=== PATIENT | female | born 1945 | race African-American/Black ===

== ENCOUNTER 2018-06-21 00:46 | Emergency (ER) | payer MEDICARE ==
[~2018-06-21] VITALS: Ht 160 cm; Wt 59.0 kg
[~2018-06-21 00:46] MED LIST: ASPI-1159 PO; AURYXIA PO; CALC0.253 PO; CALC667C PO; DIPH1TAB PO; EPOE10005 IJ; FURO40TA5 PO; HYDR-4135 PO; PANT40TA4 PO
[2018-06-21] MEDS ORDERED: FAMOTIDINE 20MG/2ML VIAL IV ONE (01:15)
[2018-06-21] MEDS ORDERED: KETOROLAC 30MG/ML VIAL IV ONE (01:15)
[2018-06-21] MEDS ORDERED: LIDOCAINE 5% PATCH TOP SCH (02:45)
[2018-06-21] MEDS ORDERED: MORPHINE SULFATE 4 MG/ML CPJ (NOT FOR IM USE) IV ONE (02:45)
[2018-06-21 05:43] VITALS: BP 118/42
== END 2018-06-21 04:26 | disposition home or self-care (01) ==
LOC: ER 00:46
DX: G89.29 Other chronic pain (principal); M54.5 Low back pain; R11.0 Nausea; D64.9 Anemia, unspecified; Z98.890 Other specified postprocedural states; Z79.899 Other long term (current) drug therapy; Z79.82 Long term (current) use of aspirin
CPT/HCPCS: 96374; 96375; 99284; J1885; J2270; J3490

== ENCOUNTER 2018-12-02 00:12 | Inpatient (IN) | payer MEDICARE ==
[~2018-12-02] VITALS: Ht 154.9 cm; Wt 62.9 kg
[2018-12-02] MEDS ORDERED: FAMOTIDINE 20MG/2ML VIAL IV STA (00:35)
[2018-12-02 01:59] LABS: BASOPHILS % 0.3 % (0.0-2.0); EOSINOPHILS % 0.6 % (0.0-5.0); HEMATOCRIT. 25.1 % (36.0-48.0); HEMOGLOBIN. 8.3 g/dL (12.0-16.0); MEAN CORPUSCULAR HEMOGLOBIN 35.8 pg (28.0-32.0); MEAN CORPUSCULAR VOLUME 108.7 fL (81.0-99.0); MEAN PLATELET VOLUME 8.6 fl (7.4-10.4); MONOCYTES % 11.5 % (2.0-8.0); NEUTROPHILS % 75.6 % (40.0-76.0); PLATELET 169 x1000/uL (130-400); RED BLOOD CELL COUNT 2.31 mill/uL (4.2-5.4); RED CELL DISTRIBUTION WIDTH 15.7 % (11.6-14.6)
[2018-12-02 02:03] LABS: CHLORIDE 97 mEq/L (98-107)
[2018-12-02] MEDS ORDERED: ONDANSETRON HCL 4MG/2ML INJ IV ONE (02:30)
[2018-12-02] MEDS ORDERED: ACETAMINOPHEN 325MG TABLET PO ONE (07:00)
[2018-12-02 08:25] VITALS: BP 156/48
[2018-12-02 09:20] VITALS: BP 156/48
[2018-12-02 12:00] VITALS: BP 141/47
[2018-12-02] MEDS ORDERED: GUAIFENESIN 200MG/10ML SUGAR FREE UDC PO PRN (12:30)
[2018-12-02] MEDS ORDERED: DIPHENHYDRAMINE 50MG/ML VIAL IV PRN (12:30)
[2018-12-02] MEDS ORDERED: DOCUSATE SODIUM 100MG CAPSULE PO PRN (12:30)
[2018-12-02] MEDS ORDERED: ACETAMINOPHEN 650MG SUPP PR PRN (12:30)
[2018-12-02] MEDS ORDERED: CLONIDINE 0.1MG TABLET PO PRN (12:30)
[2018-12-02] MEDS ORDERED: IPRATROPIUM/ALBUTEROL 0.5-3(2.5)MG/3ML NEB INH PRN (12:30)
[2018-12-02] MEDS: ONDANSETRON HCL 4MG/2ML INJ IV PRN (12:45)
[2018-12-02 15:55] LABS: INR 1.1; PROTHROMBIN TIME 10.7 sec (9.1-11.1)
[2018-12-02 16:00] VITALS: BP 80/52
[2018-12-02] MEDS: DEXT 5%/0.45% NACL 1000ML 1,000 ML IV SCH (16:08)
[2018-12-02 16:09] LABS: CREATINE KINASE MB FRACTION 1.9 ng/mL (0.5-3.6)
[2018-12-02] MEDS: ACETAMINOPHEN 325MG TABLET PO PRN (17:48)
[2018-12-02 19:58] LABS: HEMATOCRIT 23.2 % (36.0-48.0); HEMOGLOBIN 7.6 g/dL (12.0-16.0)
[2018-12-02 20:00] VITALS: BP 105/48
[2018-12-02] MEDS: PANTOPRAZOLE SODIUM 40 MG/VIAL IV SCH (21:22)
[2018-12-02] MEDS: LORAZEPAM 0.5MG TABLET PO PRN (21:23)
[2018-12-02] MEDS: IPRATROPIUM/ALBUTEROL 0.5-3(2.5)MG/3ML NEB INH SCH (21:45)
[2018-12-03] VITALS (9 sets, daily range): BP systolic 91–130; BP diastolic 30–65
[2018-12-03] MEDS: HYDROCODONE/ACETAMINOPHEN 5/325MG TABLET PO PRN ×4 (01:40→20:11)
[2018-12-03 02:13] LABS: CREATINE KINASE MB FRACTION 2.4 ng/mL (0.5-3.6)
[2018-12-03] MEDS: IPRATROPIUM/ALBUTEROL 0.5-3(2.5)MG/3ML NEB INH SCH ×2 (02:20→20:29)
[2018-12-03 07:11] LABS: BASOPHILS % 0.4 % (0.0-2.0); EOSINOPHILS % 0.9 % (0.0-5.0); HEMATOCRIT. 23.1 % (36.0-48.0); HEMOGLOBIN. 7.6 g/dL (12.0-16.0); LYMPHOCYTES % 22.3 % (20.0-50.0); MEAN CORPUSCULAR HEMOGLOBIN 35.9 pg (28.0-32.0); MEAN CORPUSCULAR VOLUME 108.6 fL (81.0-99.0); MEAN PLATELET VOLUME 8.6 fl (7.4-10.4); MONOCYTES % 14.8 % (2.0-8.0); NEUTROPHILS % 61.6 % (40.0-76.0); PLATELET 158 x1000/uL (130-400); RED BLOOD CELL COUNT 2.13 mill/uL (4.2-5.4); RED CELL DISTRIBUTION WIDTH 15.5 % (11.6-14.6)
[2018-12-03 07:14] LABS: CHLORIDE 96 mEq/L (98-107)
[2018-12-03 07:26] LABS: HDL CHOLESTEROL 70 mg/dL (40-59); T4 FREE 1.13 ng/dL (0.76-1.46)
[2018-12-03 07:31] LABS: LDL CHOLESTEROL 21 mg/dL (5-100)
[2018-12-03] MEDS: PANTOPRAZOLE SODIUM 40 MG/VIAL IV SCH ×2 (08:11→20:09)
[2018-12-03] MEDS: ONDANSETRON HCL 4MG/2ML INJ IV PRN (10:51)
[2018-12-03] MEDS ORDERED: HEPARIN SODIUM 1,000 UNIT/1ML VIAL IV NR (13:00)
[2018-12-03 14:38] LABS: BG BASE EXCESS -0.3 mmol/L (-2.0-2.0); BG CARBOXYHEMOGLOBIN 0.8 % (0.5-1.5); BG DEOXYHEMOGLOBIN 8.8 % (0.0-5.0); BG FRACTION INSPIRED OXYGEN 28; BG OXYGEN SATURATION 91.1 % (92.0-98.5); BG OXYHEMOGLOBIN 90.4 % (94.0-97.0); BG PCO2 37.5 mmHg (35.0-45.0); BG PH 7.424 (7.350-7.450); BG PO2 81.5 mmHg (75.0-100.0); BG SAMPLE SITE LEFT BRACHIAL; BG TOTAL HEMOGLOBIN 8.1 g/dL (12.0-18.0); BG VENT MODE NASAL CANNULA
[2018-12-03] MEDS: HEMORRHOIDAL SUPP PR SCH (20:13)
[2018-12-03] MEDS: DILTIAZEM HCL 30MG TABLET PO SCH ×2 (21:51→22:00)
[2018-12-03] MEDS: EPOETIN ALFA 10000UNITS/ML VIAL SUBCUT SCH (22:07)
[2018-12-04] VITALS (7 sets, daily range): BP systolic 94–133; BP diastolic 34–82
[2018-12-04] MEDS: IPRATROPIUM/ALBUTEROL 0.5-3(2.5)MG/3ML NEB INH SCH ×4 (01:13→22:14)
[2018-12-04] MEDS: HYDROCODONE/ACETAMINOPHEN 5/325MG TABLET PO PRN ×3 (02:56→17:31)
[2018-12-04] MEDS: DEXT 5%/0.45% NACL 1000ML 1,000 ML IV SCH (03:15)
[2018-12-04] MEDS: DILTIAZEM HCL 30MG TABLET PO SCH ×3 (05:27→21:24)
[2018-12-04 07:19] LABS: BASOPHILS % 0.4 % (0.0-2.0); EOSINOPHILS % 2.2 % (0.0-5.0); HEMATOCRIT. 28.5 % (36.0-48.0); HEMOGLOBIN. 9.6 g/dL (12.0-16.0); LYMPHOCYTES % 15.5 % (20.0-50.0); MEAN CORPUSCULAR HEMOGLOBIN 34.5 pg (28.0-32.0); MEAN CORPUSCULAR VOLUME 102.5 fL (81.0-99.0); MEAN PLATELET VOLUME 8.6 fl (7.4-10.4); NEUTROPHILS % 69.9 % (40.0-76.0); PLATELET 153 x1000/uL (130-400); RED BLOOD CELL COUNT 2.78 mill/uL (4.2-5.4); RED CELL DISTRIBUTION WIDTH 21.1 % (11.6-14.6)
[2018-12-04] MEDS: HEMORRHOIDAL SUPP PR SCH ×2 (09:00→21:00)
[2018-12-04] MEDS: PANTOPRAZOLE SODIUM 40 MG/VIAL IV SCH ×2 (10:04→21:30)
[2018-12-04] MEDS: DOCUSATE SODIUM SUGAR FREE 100MG/10ML UDC NG SCH (10:04)
[2018-12-04] MEDS: MAGNESIUM/ALUMINUM HYDROXIDE/SIMETHICONE 30ML UDC PO PRN (21:52)
[2018-12-05] VITALS: BP 106/46
[2018-12-05] MEDS: DEXT 5%/0.45% NACL 1000ML 1,000 ML IV SCH (00:14)
[2018-12-05] MEDS: IPRATROPIUM/ALBUTEROL 0.5-3(2.5)MG/3ML NEB INH SCH ×4 (01:59→21:50)
[2018-12-05 04:00] VITALS: BP 110/30
[2018-12-05] MEDS: DILTIAZEM HCL 30MG TABLET PO SCH ×3 (05:44→21:39)
[2018-12-05 08:00] VITALS: BP 121/68
[2018-12-05 08:02] LABS: BASOPHILS % 0.2 % (0.0-2.0); EOSINOPHILS % 0.7 % (0.0-5.0); HEMATOCRIT. 27.9 % (36.0-48.0); HEMOGLOBIN. 9.3 g/dL (12.0-16.0); LYMPHOCYTES % 10.9 % (20.0-50.0); MEAN CORPUSCULAR HEMOGLOBIN 34.6 pg (28.0-32.0); MEAN CORPUSCULAR VOLUME 103.6 fL (81.0-99.0); MEAN PLATELET VOLUME 8.2 fl (7.4-10.4); MONOCYTES % 12.7 % (2.0-8.0); NEUTROPHILS % 75.5 % (40.0-76.0); PLATELET 145 x1000/uL (130-400); RED CELL DISTRIBUTION WIDTH 21.2 % (11.6-14.6)
[2018-12-05] MEDS: HEMORRHOIDAL SUPP PR SCH ×2 (09:00→20:41)
[2018-12-05] MEDS: DOCUSATE SODIUM SUGAR FREE 100MG/10ML UDC NG SCH (09:00)
[2018-12-05] MEDS: PANTOPRAZOLE SODIUM 40 MG/VIAL IV SCH ×2 (09:39→20:40)
[2018-12-05 12:00] VITALS: BP 124/79
[2018-12-05] MEDS: HYDROCODONE/ACETAMINOPHEN 5/325MG TABLET PO PRN (15:45)
[2018-12-05 16:00] VITALS: BP 123/69
[2018-12-05 20:00] VITALS: BP 116/33
[2018-12-05] MEDS: MAGNESIUM/ALUMINUM HYDROXIDE/SIMETHICONE 30ML UDC PO PRN (23:20)
[2018-12-06] VITALS (67 sets, daily range): BP systolic 61–165; BP diastolic 16–84
[2018-12-06] MEDS: LORAZEPAM 0.5MG TABLET PO PRN (01:33)
[2018-12-06] MEDS: DEXT 5%/0.45% NACL 1000ML 1,000 ML IV SCH (01:35)
[2018-12-06] MEDS: IPRATROPIUM/ALBUTEROL 0.5-3(2.5)MG/3ML NEB INH SCH ×5 (02:18→22:15)
[2018-12-06] MEDS: DILTIAZEM HCL 30MG TABLET PO SCH ×3 (06:00→21:03)
[2018-12-06 06:24] LABS: BASOPHILS % 0.4 % (0.0-2.0); EOSINOPHILS % 1.1 % (0.0-5.0); HEMOGLOBIN. 9.6 g/dL (12.0-16.0); MEAN CORPUSCULAR HEMOGLOBIN 34.5 pg (28.0-32.0); MEAN PLATELET VOLUME 8.1 fl (7.4-10.4); MONOCYTES % 11.5 % (2.0-8.0); PLATELET 152 x1000/uL (130-400); RED BLOOD CELL COUNT 2.79 mill/uL (4.2-5.4); RED CELL DISTRIBUTION WIDTH 20.6 % (11.6-14.6)
[2018-12-06 06:34] LABS: CHLORIDE 105 mEq/L (98-107)
[2018-12-06] MEDS ORDERED: NOREPINEPHRINE 4 MG in DEXT 5% WATER 246 ML IV ONE (06:45)
[2018-12-06] MEDS ORDERED: EPINEPHRINE 4 MG in DEXT 5% WATER 246 ML IV ONE (06:45)
[2018-12-06] MEDS ORDERED: BUPIVACAINE/EPINEPH/PF 0.25%/0.0005 10ML ONE (06:58)
[2018-12-06] MEDS ORDERED: BACITRACIN 15GM TUBE TOP ONE (06:58)
[2018-12-06] MEDS ORDERED: BACITRACIN 50,000 UNITS/VIAL ONE (06:58)
[2018-12-06] MEDS ORDERED: NORMAL SALINE 0.9% 10 ML SYR ONE (06:58)
[2018-12-06] MEDS ORDERED: SODIUM CHLORIDE 0.9% 1,000 ML ONE (06:59)
[2018-12-06] MEDS ORDERED: SKIN ADHESIVE 0.7 GM EA TOP ONE (07:30)
[2018-12-06] MEDS ORDERED: PHENYLEPHRINE HCL 10 MG/ML 1ML (IV VIAL) IV ONE ×2 (07:42→09:48)
[2018-12-06] MEDS ORDERED: ETOMIDATE 2MG/ML 10ML VIAL IV ONE (07:42)
[2018-12-06] MEDS ORDERED: FENTANYL CITRATE/PF 50MCG/ML 2ML VIAL ONE (07:42)
[2018-12-06] MEDS: DOCUSATE SODIUM SUGAR FREE 100MG/10ML UDC NG SCH (09:00)
[2018-12-06] MEDS: HEMORRHOIDAL SUPP PR SCH ×3 (09:00→21:02)
[2018-12-06] MEDS: PANTOPRAZOLE SODIUM 40 MG/VIAL IV SCH ×2 (09:00→21:02)
[2018-12-06] MEDS ORDERED: HYDROMORPHONE HCL/PF 2MG/ML (OR) ONE (09:40)
[2018-12-06 10:56] LABS: BG BASE EXCESS -3.9 mmol/L (-2.0-2.0); BG CARBOXYHEMOGLOBIN 0.3 % (0.5-1.5); BG DEOXYHEMOGLOBIN 3.6 % (0.0-5.0); BG FRACTION INSPIRED OXYGEN 60; BG HCO3 ACT 21.7 mmol/L (22.0-26.0); BG METHEMOGLOBIN 0.2 % (0.0-1.5); BG OXYGEN SATURATION 96.4 % (92.0-98.5); BG OXYHEMOGLOBIN 95.9 % (94.0-97.0); BG PCO2 41.7 mmHg (35.0-45.0); BG PH 7.334 (7.350-7.450); BG SAMPLE SITE A-LINE; BG TOTAL HEMOGLOBIN 9.1 g/dL (12.0-18.0); BG VENT MODE MASK - SIMPLE
[2018-12-06] MEDS ORDERED: MORPHINE SULFATE 4 MG/ML CPJ (NOT FOR IM USE) IV PRN (11:30)
[2018-12-06] MEDS ORDERED: METOPROLOL TARTRATE 5MG/5ML VIAL IV SCH (12:15)
[2018-12-06] MEDS ORDERED: LORAZEPAM 0.5MG TABLET PO PRN (16:30)
[2018-12-06] MEDS ORDERED: ALBUMIN HUMAN 12.5G/250ML (5%) IV NR (20:00)
[2018-12-06] MEDS: EPOETIN ALFA 10000UNITS/ML VIAL SUBCUT SCH (21:02)
[2018-12-06] MEDS: ACETAMINOPHEN 325MG TABLET PO PRN (21:46)
[2018-12-07] VITALS (70 sets, daily range): BP systolic 62–164; BP diastolic 23–139
[2018-12-07] MEDS: DEXT 5%/0.45% NACL 1000ML 1,000 ML IV SCH (01:22)
[2018-12-07] MEDS: HYDROCODONE/ACETAMINOPHEN 5/325MG TABLET PO PRN ×2 (04:05→09:38)
[2018-12-07] MEDS: IPRATROPIUM/ALBUTEROL 0.5-3(2.5)MG/3ML NEB INH SCH ×4 (04:51→21:51)
[2018-12-07] MEDS: DILTIAZEM HCL 30MG TABLET PO SCH ×3 (05:15→22:00)
[2018-12-07 06:17] LABS: BASOPHILS % 0.3 % (0.0-2.0); EOSINOPHILS % 1.2 % (0.0-5.0); HEMATOCRIT. 27.7 % (36.0-48.0); HEMOGLOBIN. 9.1 g/dL (12.0-16.0); LYMPHOCYTES % 14.5 % (20.0-50.0); MEAN CORPUSCULAR HEMOGLOBIN 34.4 pg (28.0-32.0); MEAN CORPUSCULAR VOLUME 104.2 fL (81.0-99.0); MEAN PLATELET VOLUME 8.6 fl (7.4-10.4); MONOCYTES % 13.2 % (2.0-8.0); NEUTROPHILS % 70.8 % (40.0-76.0); PLATELET 126 x1000/uL (130-400); RED BLOOD CELL COUNT 2.66 mill/uL (4.2-5.4); RED CELL DISTRIBUTION WIDTH 19.7 % (11.6-14.6)
[2018-12-07] MEDS: DOCUSATE SODIUM SUGAR FREE 100MG/10ML UDC NG SCH ×2 (09:00→09:30)
[2018-12-07] MEDS ORDERED: SODIUM CHLORIDE 0.9% 200 ML IV ONE (09:00)
[2018-12-07] MEDS: HEMORRHOIDAL SUPP PR SCH ×2 (09:00→21:00)
[2018-12-07 09:02] LABS: BG CARBOXYHEMOGLOBIN 0.6 % (0.5-1.5); BG DEOXYHEMOGLOBIN 7.4 % (0.0-5.0); BG FRACTION INSPIRED OXYGEN 28; BG METHEMOGLOBIN 0.1 % (0.0-1.5); BG OXYGEN SATURATION 92.5 % (92.0-98.5); BG OXYHEMOGLOBIN 91.9 % (94.0-97.0); BG PCO2 43.6 mmHg (35.0-45.0); BG PH 7.394 (7.350-7.450); BG PO2 83.3 mmHg (75.0-100.0); BG SAMPLE SITE LEFT BRACHIAL; BG TOTAL HEMOGLOBIN 8.1 g/dL (12.0-18.0); BG VENT MODE NASAL CANNULA
[2018-12-07] MEDS: PANTOPRAZOLE SODIUM 40 MG/VIAL IV SCH ×2 (09:30→22:16)
[2018-12-07] MEDS ORDERED: AMIODARONE HCL 900 MG in DEXT 5% WATER 482 ML IV SCH (10:45)
[2018-12-07] MEDS ORDERED: PHENYLEPHRINE 20 MG in DEXT 5% WATER 248 ML IV PRN (16:00)
[2018-12-08] VITALS (93 sets, daily range): BP systolic 44–140; BP diastolic 15–101
[2018-12-08] MEDS: DEXT 5%/0.45% NACL 1000ML 1,000 ML IV SCH (01:31)
[2018-12-08] MEDS: IPRATROPIUM/ALBUTEROL 0.5-3(2.5)MG/3ML NEB INH SCH ×3 (01:39→20:32)
[2018-12-08] MEDS: ONDANSETRON HCL 4MG/2ML INJ IV PRN ×2 (02:47→10:19)
[2018-12-08] MEDS: DILTIAZEM HCL 30MG TABLET PO SCH (06:00)
[2018-12-08 06:14] LABS: BASOPHILS % 0.4 % (0.0-2.0); EOSINOPHILS % 1.2 % (0.0-5.0); LYMPHOCYTES % 10.3 % (20.0-50.0); MEAN CORPUSCULAR HEMOGLOBIN 33.8 pg (28.0-32.0); MEAN CORPUSCULAR VOLUME 105.2 fL (81.0-99.0); MEAN PLATELET VOLUME 8.4 fl (7.4-10.4); MONOCYTES % 13.2 % (2.0-8.0); NEUTROPHILS % 74.9 % (40.0-76.0); PLATELET 144 x1000/uL (130-400); RED BLOOD CELL COUNT 2.66 mill/uL (4.2-5.4); RED CELL DISTRIBUTION WIDTH 19.3 % (11.6-14.6)
[2018-12-08] MEDS: ACETAMINOPHEN 325MG TABLET PO PRN ×2 (07:10→19:54)
[2018-12-08] MEDS: DOCUSATE SODIUM SUGAR FREE 100MG/10ML UDC NG SCH (08:44)
[2018-12-08] MEDS: HEMORRHOIDAL SUPP PR SCH ×2 (08:45→19:54)
[2018-12-08] MEDS: PANTOPRAZOLE SODIUM 40 MG/VIAL IV SCH ×2 (10:18→19:54)
[2018-12-08] MEDS: AMIODARONE HCL 200 MG TABLET PO SCH ×2 (12:10→21:57)
[2018-12-08] MEDS: HYDROCODONE/ACETAMINOPHEN 5/325MG TABLET PO PRN (12:11)
[2018-12-08] MEDS: EPOETIN ALFA 10000UNITS/ML VIAL SUBCUT SCH (21:57)
[2018-12-09] VITALS (53 sets, daily range): BP systolic 60–157; BP diastolic 21–114
[2018-12-09] MEDS: IPRATROPIUM/ALBUTEROL 0.5-3(2.5)MG/3ML NEB INH SCH ×4 (00:19→21:10)
[2018-12-09] MEDS: DEXT 5%/0.45% NACL 1000ML 1,000 ML IV SCH (01:54)
[2018-12-09] MEDS: ACETAMINOPHEN 325MG TABLET PO PRN ×2 (05:15→12:28)
[2018-12-09 08:05] LABS: HEMATOCRIT 25.3 % (36.0-48.0); HEMOGLOBIN 8.2 g/dL (12.0-16.0); MEAN CORPUSCULAR HEMOGLOBIN 33.6 pg (28.0-32.0); MEAN CORPUSCULAR VOLUME 103.3 fL (81.0-99.0); PLATELET 126 x1000/uL (130-400); RED BLOOD CELL COUNT 2.45 mill/uL (4.2-5.4); RED CELL DISTRIBUTION WIDTH 18.5 % (11.6-14.6)
[2018-12-09] MEDS: PANTOPRAZOLE SODIUM 40 MG/VIAL IV SCH ×2 (08:49→20:46)
[2018-12-09] MEDS: AMIODARONE HCL 200 MG TABLET PO SCH ×3 (08:49→21:56)
[2018-12-09] MEDS: DOCUSATE SODIUM SUGAR FREE 100MG/10ML UDC NG SCH (08:50)
[2018-12-09] MEDS: HEMORRHOIDAL SUPP PR SCH ×2 (09:00→20:46)
[2018-12-09] MEDS: MIDODRINE HCL 5MG TABLET PO SCH ×2 (13:18→18:18)
[2018-12-10] VITALS (31 sets, daily range): BP systolic 114–163; BP diastolic 40–105
[2018-12-10] MEDS: IPRATROPIUM/ALBUTEROL 0.5-3(2.5)MG/3ML NEB INH SCH ×4 (00:40→20:21)
[2018-12-10] MEDS: DEXT 5%/0.45% NACL 1000ML 1,000 ML IV SCH (03:52)
[2018-12-10] MEDS: HYDROCODONE/ACETAMINOPHEN 5/325MG TABLET PO PRN ×3 (03:52→23:05)
[2018-12-10 07:35] LABS: HEMATOCRIT. 26.3 % (36.0-48.0); HEMOGLOBIN. 8.7 g/dL (12.0-16.0); MEAN CORPUSCULAR HEMOGLOBIN 33.9 pg (28.0-32.0); MEAN CORPUSCULAR VOLUME 102.6 fL (81.0-99.0); MEAN PLATELET VOLUME 8.3 fl (7.4-10.4); PLATELET 144 x1000/uL (130-400); RED BLOOD CELL COUNT 2.56 mill/uL (4.2-5.4); RED CELL DISTRIBUTION WIDTH 17.9 % (11.6-14.6)
[2018-12-10 07:49] LABS: CHLORIDE 100 mEq/L (98-107)
[2018-12-10] MEDS: PANTOPRAZOLE SODIUM 40 MG/VIAL IV SCH ×2 (08:59→21:56)
[2018-12-10] MEDS: MIDODRINE HCL 5MG TABLET PO SCH ×3 (08:59→17:45)
[2018-12-10] MEDS: AMIODARONE HCL 200 MG TABLET PO SCH (08:59)
[2018-12-10] MEDS: DOCUSATE SODIUM SUGAR FREE 100MG/10ML UDC NG SCH (09:00)
[2018-12-10] MEDS: HEMORRHOIDAL SUPP PR SCH ×2 (09:00→22:10)
[2018-12-10 10:07] LABS: PLATELET ESTIMATE NORMAL
[2018-12-10] MEDS ORDERED: HEPARIN SODIUM 1,000 UNIT/1ML VIAL IV NR (11:30)
[2018-12-10] MEDS: EPOETIN ALFA 10000UNITS/ML VIAL SUBCUT SCH (22:10)
[2018-12-11] VITALS (12 sets, daily range): BP systolic 104–156; BP diastolic 42–74
[2018-12-11] MEDS: MAGNESIUM/ALUMINUM HYDROXIDE/SIMETHICONE 30ML UDC PO PRN (00:28)
[2018-12-11] MEDS: IPRATROPIUM/ALBUTEROL 0.5-3(2.5)MG/3ML NEB INH SCH ×3 (02:41→20:54)
[2018-12-11] MEDS: ONDANSETRON HCL 4MG/2ML INJ IV PRN (06:20)
[2018-12-11] MEDS: HYDROCODONE/ACETAMINOPHEN 5/325MG TABLET PO PRN (06:49)
[2018-12-11] MEDS: HEMORRHOIDAL SUPP PR SCH ×2 (09:00→20:53)
[2018-12-11] MEDS: DOCUSATE SODIUM SUGAR FREE 100MG/10ML UDC NG SCH (09:00)
[2018-12-11] MEDS: MIDODRINE HCL 5MG TABLET PO SCH ×3 (09:00→17:00)
[2018-12-11] MEDS: PANTOPRAZOLE SODIUM 40 MG/VIAL IV SCH ×2 (09:01→20:42)
[2018-12-11] MEDS: AMIODARONE HCL 200 MG TABLET PO SCH ×2 (09:02→20:43)
[2018-12-11] MEDS: ACETAMINOPHEN 325MG TABLET PO PRN (18:47)
[2018-12-12] VITALS (12 sets, daily range): BP systolic 109–160; BP diastolic 34–63
[2018-12-12] MEDS: IPRATROPIUM/ALBUTEROL 0.5-3(2.5)MG/3ML NEB INH SCH ×3 (01:59→22:09)
[2018-12-12 05:43] LABS: HEMATOCRIT. 26.9 % (36.0-48.0); HEMOGLOBIN. 8.8 g/dL (12.0-16.0); MEAN CORPUSCULAR HEMOGLOBIN 33.8 pg (28.0-32.0); MEAN CORPUSCULAR VOLUME 103.2 fL (81.0-99.0); MEAN PLATELET VOLUME 7.9 fl (7.4-10.4); PLATELET 153 x1000/uL (130-400); RED CELL DISTRIBUTION WIDTH 17.8 % (11.6-14.6)
[2018-12-12 05:53] LABS: CHLORIDE 106 mEq/L (98-107)
[2018-12-12] MEDS: DOCUSATE SODIUM SUGAR FREE 100MG/10ML UDC NG SCH ×2 (08:00→08:08)
[2018-12-12] MEDS: PANTOPRAZOLE SODIUM 40 MG/VIAL IV SCH ×2 (08:02→21:20)
[2018-12-12] MEDS: HYDROCODONE/ACETAMINOPHEN 5/325MG TABLET PO PRN ×3 (08:03→19:40)
[2018-12-12] MEDS: HEMORRHOIDAL SUPP PR SCH ×2 (08:03→21:00)
[2018-12-12] MEDS: AMIODARONE HCL 200 MG TABLET PO SCH (08:04)
[2018-12-12] MEDS: MIDODRINE HCL 5MG TABLET PO SCH ×2 (08:04→12:37)
[2018-12-12 14:26] LABS: PLATELET ESTIMATE NORMAL
[2018-12-12] MEDS ORDERED: ATROPINE SULFATE 1MG/ML VIAL IV PRN (16:15)
[2018-12-13] VITALS (12 sets, daily range): BP systolic 107–156; BP diastolic 30–84
[2018-12-13] MEDS: IPRATROPIUM/ALBUTEROL 0.5-3(2.5)MG/3ML NEB INH SCH ×3 (03:50→21:21)
[2018-12-13 07:42] LABS: BASOPHILS % 0.3 % (0.0-2.0); EOSINOPHILS % 0.9 % (0.0-5.0); HEMATOCRIT. 25.8 % (36.0-48.0); HEMOGLOBIN. 8.5 g/dL (12.0-16.0); LYMPHOCYTES % 12.9 % (20.0-50.0); MEAN CORPUSCULAR HEMOGLOBIN 33.9 pg (28.0-32.0); MEAN CORPUSCULAR VOLUME 103.1 fL (81.0-99.0); MEAN PLATELET VOLUME 8.5 fl (7.4-10.4); MONOCYTES % 14.6 % (2.0-8.0); NEUTROPHILS % 71.3 % (40.0-76.0); PLATELET 161 x1000/uL (130-400); RED CELL DISTRIBUTION WIDTH 18.3 % (11.6-14.6)
[2018-12-13] MEDS: DOCUSATE SODIUM SUGAR FREE 100MG/10ML UDC NG SCH (09:00)
[2018-12-13] MEDS: HEMORRHOIDAL SUPP PR SCH ×2 (09:00→21:00)
[2018-12-13] MEDS: PANTOPRAZOLE SODIUM 40 MG/VIAL IV SCH ×2 (10:16→21:44)
[2018-12-13] MEDS: ONDANSETRON HCL 4MG/2ML INJ IV PRN (10:16)
[2018-12-13] MEDS: HYDROCODONE/ACETAMINOPHEN 5/325MG TABLET PO PRN ×3 (10:18→23:38)
[2018-12-13 10:49] LABS: T4 FREE 0.91 ng/dL (0.76-1.46)
[2018-12-13] MEDS: EPOETIN ALFA 10000UNITS/ML VIAL SUBCUT SCH (23:29)
[2018-12-13] MEDS: AMIODARONE HCL 200 MG TABLET PO SCH (23:30)
[2018-12-14] VITALS (17 sets, daily range): BP systolic 92–151; BP diastolic 28–72
[2018-12-14] MEDS: IPRATROPIUM/ALBUTEROL 0.5-3(2.5)MG/3ML NEB INH SCH ×4 (02:51→21:16)
[2018-12-14 07:18] LABS: HEMATOCRIT 25.7 % (36.0-48.0); HEMOGLOBIN 8.5 g/dL (12.0-16.0); MEAN CORPUSCULAR HEMOGLOBIN 33.8 pg (28.0-32.0); MEAN CORPUSCULAR VOLUME 102.3 fL (81.0-99.0); PLATELET 171 x1000/uL (130-400); RED BLOOD CELL COUNT 2.51 mill/uL (4.2-5.4); RED CELL DISTRIBUTION WIDTH 17.8 % (11.6-14.6)
[2018-12-14] MEDS: HEMORRHOIDAL SUPP PR SCH ×2 (09:00→21:00)
[2018-12-14] MEDS: DOCUSATE SODIUM SUGAR FREE 100MG/10ML UDC NG SCH (09:00)
[2018-12-14] MEDS: PANTOPRAZOLE SODIUM 40 MG/VIAL IV SCH ×2 (09:13→21:08)
[2018-12-14] MEDS: AMIODARONE HCL 200 MG TABLET PO SCH (09:14)
[2018-12-14] MEDS: HYDROCODONE/ACETAMINOPHEN 5/325MG TABLET PO PRN (21:15)
[2018-12-15] VITALS (12 sets, daily range): BP systolic 103–148; BP diastolic 30–62
[2018-12-15] MEDS: IPRATROPIUM/ALBUTEROL 0.5-3(2.5)MG/3ML NEB INH SCH ×4 (01:20→20:24)
[2018-12-15] MEDS: HYDROCODONE/ACETAMINOPHEN 5/325MG TABLET PO PRN ×3 (02:40→20:44)
[2018-12-15 08:14] LABS: BASOPHILS % 0.4 % (0.0-2.0); EOSINOPHILS % 1.4 % (0.0-5.0); HEMATOCRIT. 27.8 % (36.0-48.0); LYMPHOCYTES % 12.1 % (20.0-50.0); MEAN CORPUSCULAR HEMOGLOBIN 33.3 pg (28.0-32.0); MEAN CORPUSCULAR VOLUME 102.3 fL (81.0-99.0); MEAN PLATELET VOLUME 7.9 fl (7.4-10.4); MONOCYTES % 14.6 % (2.0-8.0); NEUTROPHILS % 71.5 % (40.0-76.0); PLATELET 178 x1000/uL (130-400); RED BLOOD CELL COUNT 2.71 mill/uL (4.2-5.4); RED CELL DISTRIBUTION WIDTH 17.8 % (11.6-14.6)
[2018-12-15] MEDS: PANTOPRAZOLE SODIUM 40 MG/VIAL IV SCH ×2 (08:39→20:41)
[2018-12-15] MEDS: AMIODARONE HCL 200 MG TABLET PO SCH (08:39)
[2018-12-15] MEDS: HEMORRHOIDAL SUPP PR SCH ×2 (08:40→20:42)
[2018-12-15] MEDS: DOCUSATE SODIUM SUGAR FREE 100MG/10ML UDC NG SCH (08:40)
[2018-12-15] MEDS: AMLODIPINE 5MG TABLET PO SCH (15:20)
[2018-12-15] MEDS ORDERED: EPOETIN ALFA 10000UNITS/ML VIAL SUBCUT SCH (21:00)
[2018-12-16] VITALS (9 sets, daily range): BP systolic 93–136; BP diastolic 22–40
[2018-12-16] MEDS: AMLODIPINE 5MG TABLET PO SCH ×3 (00:28→21:00)
[2018-12-16] MEDS: IPRATROPIUM/ALBUTEROL 0.5-3(2.5)MG/3ML NEB INH SCH ×3 (01:59→21:00)
[2018-12-16] MEDS: DOCUSATE SODIUM SUGAR FREE 100MG/10ML UDC NG SCH (09:00)
[2018-12-16] MEDS: HEMORRHOIDAL SUPP PR SCH ×2 (09:00→22:02)
[2018-12-16] MEDS: AMIODARONE HCL 200 MG TABLET PO SCH (10:25)
[2018-12-16] MEDS: PANTOPRAZOLE SODIUM 40 MG/VIAL IV SCH ×2 (10:25→22:02)
[2018-12-16] MEDS: HYDROCODONE/ACETAMINOPHEN 5/325MG TABLET PO PRN (15:31)
[2018-12-16] MEDS: ACETAMINOPHEN 325MG TABLET PO PRN (22:02)
[2018-12-17] MEDS: IPRATROPIUM/ALBUTEROL 0.5-3(2.5)MG/3ML NEB INH SCH ×4 (01:00→21:00)
[2018-12-17 04:00] VITALS: BP 103/25
[2018-12-17] MEDS: ACETAMINOPHEN 325MG TABLET PO PRN ×3 (06:29→22:10)
[2018-12-17 07:12] LABS: HEMATOCRIT 25.6 % (36.0-48.0); HEMOGLOBIN 8.3 g/dL (12.0-16.0); MEAN CORPUSCULAR HEMOGLOBIN 33.2 pg (28.0-32.0); MEAN CORPUSCULAR VOLUME 102.5 fL (81.0-99.0); PLATELET 154 x1000/uL (130-400); RED CELL DISTRIBUTION WIDTH 17.6 % (11.6-14.6)
[2018-12-17] MEDS: ONDANSETRON HCL 4MG/2ML INJ IV PRN (07:29)
[2018-12-17 08:00] VITALS: BP 109/25
[2018-12-17] MEDS: HEMORRHOIDAL SUPP PR SCH ×3 (09:00→22:15)
[2018-12-17] MEDS: DOCUSATE SODIUM SUGAR FREE 100MG/10ML UDC NG SCH (09:00)
[2018-12-17] MEDS: AMIODARONE HCL 200 MG TABLET PO SCH (09:30)
[2018-12-17] MEDS: PANTOPRAZOLE SODIUM 40 MG/VIAL IV SCH ×2 (09:31→22:08)
[2018-12-17] MEDS: AMLODIPINE 5MG TABLET PO SCH ×2 (09:45→21:00)
[2018-12-17 12:00] VITALS: BP 129/29
[2018-12-17 16:00] VITALS: BP 118/30
[2018-12-17 20:00] VITALS: BP 116/52
[2018-12-17] MEDS: DIPHENOXYLATE/ATROPINE 2.5/0.025MG TABLET PO PRN (22:15)
[2018-12-18] VITALS: BP 94/48
[2018-12-18] MEDS: IPRATROPIUM/ALBUTEROL 0.5-3(2.5)MG/3ML NEB INH SCH ×3 (01:50→21:06)
[2018-12-18 04:00] VITALS: BP 110/48
[2018-12-18] MEDS: ACETAMINOPHEN 325MG TABLET PO PRN ×4 (04:22→23:33)
[2018-12-18 08:36] VITALS: BP 101/14
[2018-12-18] MEDS: HEMORRHOIDAL SUPP PR SCH (09:00)
[2018-12-18] MEDS: AMLODIPINE 5MG TABLET PO SCH ×2 (09:00→21:00)
[2018-12-18] MEDS: DIPHENOXYLATE/ATROPINE 2.5/0.025MG TABLET PO PRN (10:35)
[2018-12-18] MEDS: PANTOPRAZOLE SODIUM 40 MG/VIAL IV SCH ×2 (10:35→20:53)
[2018-12-18] MEDS: AMIODARONE HCL 200 MG TABLET PO SCH (10:36)
[2018-12-18 12:11] VITALS: BP 104/28
[2018-12-18 16:14] VITALS: BP 103/20
[2018-12-18] MEDS ORDERED: CALCIUM GLUCONATE 1,000 MG in DEXT 5% WATER 90 ML IV NR (17:00)
[2018-12-18 20:05] VITALS: BP 105/71
[2018-12-19] VITALS (9 sets, daily range): BP systolic 84–131; BP diastolic 17–55
[2018-12-19] MEDS: MAGNESIUM/ALUMINUM HYDROXIDE/SIMETHICONE 30ML UDC PO PRN (01:51)
[2018-12-19] MEDS: ACETAMINOPHEN 325MG TABLET PO PRN ×3 (06:41→21:58)
[2018-12-19] MEDS: IPRATROPIUM/ALBUTEROL 0.5-3(2.5)MG/3ML NEB INH SCH ×3 (08:20→22:07)
[2018-12-19] MEDS: AMLODIPINE 5MG TABLET PO SCH ×2 (09:00→21:59)
[2018-12-19] MEDS: NYSTATIN POWDER 15GM TOP SCH (09:00)
[2018-12-19] MEDS: PANTOPRAZOLE SODIUM 40 MG/VIAL IV SCH ×2 (09:20→22:02)
[2018-12-19] MEDS: AMIODARONE HCL 200 MG TABLET PO SCH (09:20)
[2018-12-19 15:48] LABS: BASOPHILS % 0.6 % (0.0-2.0); EOSINOPHILS % 1.8 % (0.0-5.0); HEMATOCRIT. 26.1 % (36.0-48.0); HEMOGLOBIN. 8.5 g/dL (12.0-16.0); LYMPHOCYTES % 14.4 % (20.0-50.0); MEAN CORPUSCULAR HEMOGLOBIN 33.4 pg (28.0-32.0); MEAN CORPUSCULAR VOLUME 102.4 fL (81.0-99.0); MEAN PLATELET VOLUME 8.4 fl (7.4-10.4); NEUTROPHILS % 71.2 % (40.0-76.0); PLATELET 181 x1000/uL (130-400); RED BLOOD CELL COUNT 2.55 mill/uL (4.2-5.4); RED CELL DISTRIBUTION WIDTH 17.5 % (11.6-14.6)
[2018-12-19] MEDS ORDERED: HEPARIN SODIUM 1,000 UNIT/1ML VIAL IV NR (17:30)
[2018-12-20] VITALS: BP 116/20
[2018-12-20] MEDS: ONDANSETRON HCL 4MG/2ML INJ IV PRN (00:33)
[2018-12-20] MEDS: ACETAMINOPHEN 325MG TABLET PO PRN ×4 (02:21→21:43)
[2018-12-20] MEDS: IPRATROPIUM/ALBUTEROL 0.5-3(2.5)MG/3ML NEB INH SCH ×3 (02:32→19:58)
[2018-12-20 04:00] VITALS: BP 99/10
[2018-12-20 06:03] LABS: BASOPHILS % 0.4 % (0.0-2.0); HEMOGLOBIN. 8.2 g/dL (12.0-16.0); LYMPHOCYTES % 10.5 % (20.0-50.0); MEAN CORPUSCULAR HEMOGLOBIN 33.2 pg (28.0-32.0); MEAN CORPUSCULAR VOLUME 101.7 fL (81.0-99.0); MEAN PLATELET VOLUME 7.9 fl (7.4-10.4); MONOCYTES % 10.4 % (2.0-8.0); NEUTROPHILS % 77.7 % (40.0-76.0); PLATELET 176 x1000/uL (130-400); RED BLOOD CELL COUNT 2.46 mill/uL (4.2-5.4); RED CELL DISTRIBUTION WIDTH 17.4 % (11.6-14.6)
[2018-12-20 08:00] VITALS: BP 91/71
[2018-12-20] MEDS: AMLODIPINE 5MG TABLET PO SCH ×2 (09:00→21:36)
[2018-12-20] MEDS: AMIODARONE HCL 200 MG TABLET PO SCH (09:01)
[2018-12-20] MEDS: PANTOPRAZOLE SODIUM 40 MG/VIAL IV SCH ×2 (09:02→21:37)
[2018-12-20] MEDS: NYSTATIN POWDER 15GM TOP SCH (09:07)
[2018-12-20 12:00] VITALS: BP 109/23
[2018-12-20 16:00] VITALS: BP 111/25
[2018-12-20] MEDS: EPOETIN ALFA 10000UNITS/ML VIAL SUBCUT SCH (21:36)
[2018-12-21] VITALS: BP 102/60
[2018-12-21] MEDS: IPRATROPIUM/ALBUTEROL 0.5-3(2.5)MG/3ML NEB INH SCH ×4 (01:29→21:20)
[2018-12-21 04:00] VITALS: BP 110/61
[2018-12-21] MEDS: ACETAMINOPHEN 325MG TABLET PO PRN ×3 (06:57→20:04)
[2018-12-21 08:00] VITALS: BP 101/21
[2018-12-21] MEDS: AMLODIPINE 5MG TABLET PO SCH ×2 (09:00→20:04)
[2018-12-21] MEDS: PANTOPRAZOLE SODIUM 40 MG/VIAL IV SCH ×2 (09:45→20:02)
[2018-12-21] MEDS: AMIODARONE HCL 200 MG TABLET PO SCH (09:46)
[2018-12-21 12:00] VITALS: BP 115/19
[2018-12-21] MEDS: NYSTATIN POWDER 15GM TOP SCH (12:24)
[2018-12-21] MEDS: DOCUSATE SODIUM 100MG CAPSULE PO SCH ×2 (14:45→17:00)
[2018-12-21 16:00] VITALS: BP 105/29
[2018-12-21 20:34] VITALS: BP 113/27
[2018-12-22 00:33] VITALS: BP 115/20
[2018-12-22] MEDS: IPRATROPIUM/ALBUTEROL 0.5-3(2.5)MG/3ML NEB INH SCH ×4 (02:20→21:03)
[2018-12-22 04:00] VITALS: BP_SYST 115; BP_SYST 98; BP_DIAS 20; BP_DIAS 26
[2018-12-22 07:29] LABS: HEMATOCRIT 25.3 % (36.0-48.0); HEMOGLOBIN 8.4 g/dL (12.0-16.0); MEAN CORPUSCULAR HEMOGLOBIN 33.4 pg (28.0-32.0); MEAN CORPUSCULAR VOLUME 101.1 fL (81.0-99.0); PLATELET 195 x1000/uL (130-400)
[2018-12-22 08:07] VITALS: BP 103/32
[2018-12-22] MEDS: ACETAMINOPHEN 325MG TABLET PO PRN ×2 (08:16→19:52)
[2018-12-22] MEDS: AMIODARONE HCL 200 MG TABLET PO SCH (08:17)
[2018-12-22] MEDS: PANTOPRAZOLE SODIUM 40 MG/VIAL IV SCH ×2 (08:17→20:00)
[2018-12-22] MEDS: DOCUSATE SODIUM 100MG CAPSULE PO SCH ×2 (08:17→17:56)
[2018-12-22] MEDS: AMLODIPINE 5MG TABLET PO SCH ×2 (08:37→20:01)
[2018-12-22] MEDS: NYSTATIN POWDER 15GM TOP SCH (08:38)
[2018-12-22] MEDS ORDERED: HYDROCODONE/ACETAMINOPHEN 5/325MG TABLET PO PRN (11:45)
[2018-12-22] MEDS ORDERED: LACTULOSE 20G/30ML UDC PO SCH (11:45)
[2018-12-22 12:00] VITALS: BP 92/26
[2018-12-22 16:00] VITALS: BP 103/26
[2018-12-22 20:00] VITALS: BP 103/19
[2018-12-22] MEDS: EPOETIN ALFA 10000UNITS/ML VIAL SUBCUT SCH (20:00)
[2018-12-23] VITALS (11 sets, daily range): BP systolic 82–139; BP diastolic 17–85
[2018-12-23] MEDS: IPRATROPIUM/ALBUTEROL 0.5-3(2.5)MG/3ML NEB INH SCH ×3 (01:11→14:20)
[2018-12-23] MEDS: ACETAMINOPHEN 325MG TABLET PO PRN (06:51)
[2018-12-23] MEDS: DOCUSATE SODIUM 100MG CAPSULE PO SCH ×2 (08:15→17:00)
[2018-12-23] MEDS: AMLODIPINE 5MG TABLET PO SCH (08:17)
[2018-12-23] MEDS: AMIODARONE HCL 200 MG TABLET PO SCH (09:01)
[2018-12-23] MEDS: PANTOPRAZOLE SODIUM 40 MG/VIAL IV SCH (09:01)
[2018-12-23 09:50] LABS: HEMATOCRIT 22.4 % (36.0-48.0); HEMOGLOBIN 7.3 g/dL (12.0-16.0); MEAN CORPUSCULAR HEMOGLOBIN 32.9 pg (28.0-32.0); MEAN CORPUSCULAR VOLUME 101.4 fL (81.0-99.0); PLATELET 168 x1000/uL (130-400); RED BLOOD CELL COUNT 2.21 mill/uL (4.2-5.4); RED CELL DISTRIBUTION WIDTH 16.8 % (11.6-14.6)
[2018-12-23] MEDS ORDERED: OXYCODONE HCL 10MG TABLET SR 12HR PO SCH (11:00)
[2018-12-23] MEDS: NYSTATIN POWDER 15GM TOP SCH (12:31)
[2018-12-23] MEDS: MIDODRINE HCL 5MG TABLET PO SCH ×3 (12:31→18:28)
== END 2018-12-23 20:40 | DRG 270 ==
LOC: ER 00:36 → 8WST 05:17 → EDBEDREQ 05:28 → EDBEDREQTM 05:28 → ENRESERV 08:10 → CVICU 12-06 10:36 → 3WST 12-10 19:18 → 6WST 12-16 09:43
PROVIDERS: ADMIT Internal Medicine; ATTEND Internal Medicine
PROC: 30233N1 Transfusion of Nonautologous Red Blood Cells into Peripheral Vein, Percutaneous Approach (ICD-10-PCS; principal; 2018-12-03)
PROC: 5A1D70Z Performance of Urinary Filtration, Intermittent, Less than 6 Hours Per Day (ICD-10-PCS; 2018-12-05)
PROC: 0W9D0ZZ Drainage of Pericardial Cavity, Open Approach (ICD-10-PCS; 2018-12-06)
PROC: 02BN0ZX Excision of Pericardium, Open Approach, Diagnostic (ICD-10-PCS; 2018-12-06)
PROC: 0W9900Z Drainage of Right Pleural Cavity with Drainage Device, Open Approach (ICD-10-PCS; 2018-12-06)
PROC: B24BZZ4 Ultrasonography of Heart with Aorta, Transesophageal (ICD-10-PCS; 2018-12-06)
PROC: 02HV33Z Insertion of Infusion Device into Superior Vena Cava, Percutaneous Approach (ICD-10-PCS; 2018-12-07)
PROC: B548ZZA Ultrasonography of Superior Vena Cava, Guidance (ICD-10-PCS; 2018-12-07)
PROC: 5A1D70Z Performance of Urinary Filtration, Intermittent, Less than 6 Hours Per Day (ICD-10-PCS; 2018-12-07)
PROC: 5A1D70Z Performance of Urinary Filtration, Intermittent, Less than 6 Hours Per Day (ICD-10-PCS; 2018-12-09)
PROC: 5A1D70Z Performance of Urinary Filtration, Intermittent, Less than 6 Hours Per Day (ICD-10-PCS; 2018-12-12)
PROC: 5A1D70Z Performance of Urinary Filtration, Intermittent, Less than 6 Hours Per Day (ICD-10-PCS; 2018-12-14)
PROC: 5A1D70Z Performance of Urinary Filtration, Intermittent, Less than 6 Hours Per Day (ICD-10-PCS; 2018-12-15)
PROC: 5A1D70Z Performance of Urinary Filtration, Intermittent, Less than 6 Hours Per Day (ICD-10-PCS; 2018-12-18)
PROC: 5A1D70Z Performance of Urinary Filtration, Intermittent, Less than 6 Hours Per Day (ICD-10-PCS; 2018-12-21)
PROC: 5A1D70Z Performance of Urinary Filtration, Intermittent, Less than 6 Hours Per Day (ICD-10-PCS; 2018-12-23)
DX: I13.2 Hypertensive heart and chronic kidney disease with heart failure and with stage 5 chronic kidney disease, or end stage renal disease (principal); I50.33 Acute on chronic diastolic (congestive) heart failure; J96.20 Acute and chronic respiratory failure, unspecified whether with hypoxia or hypercapnia; N18.6 End stage renal disease; K57.31 Diverticulosis of large intestine without perforation or abscess with bleeding; I31.3 Pericardial effusion (noninflammatory); D62 Acute posthemorrhagic anemia; M48.56XA Collapsed vertebra, not elsewhere classified, lumbar region, initial encounter for fracture; N39.0 Urinary tract infection, site not specified; E46 Unspecified protein-calorie malnutrition; D68.9 Coagulation defect, unspecified; L97.429 Non-pressure chronic ulcer of left heel and midfoot with unspecified severity; I48.92 Unspecified atrial flutter; I31.4 Cardiac tamponade; E11.51 Type 2 diabetes mellitus with diabetic peripheral angiopathy without gangrene; E11.22 Type 2 diabetes mellitus with diabetic chronic kidney disease; I48.0 Paroxysmal atrial fibrillation; D69.6 Thrombocytopenia, unspecified; E11.65 Type 2 diabetes mellitus with hyperglycemia; F41.9 Anxiety disorder, unspecified; I07.1 Rheumatic tricuspid insufficiency; I27.29 Other secondary pulmonary hypertension; I48.2 Chronic atrial fibrillation; K59.00 Constipation, unspecified; D63.1 Anemia in chronic kidney disease; R62.7 Adult failure to thrive; M48.07 Spinal stenosis, lumbosacral region; Z79.82 Long term (current) use of aspirin; Z90.3 Acquired absence of stomach [part of]; Z99.3 Dependence on wheelchair; Z99.2 Dependence on renal dialysis; Z99.81 Dependence on supplemental oxygen; Z90.49 Acquired absence of other specified parts of digestive tract; Z79.84 Long term (current) use of oral hypoglycemic drugs; Z68.26 Body mass index [BMI] 26.0-26.9, adult
CPT/HCPCS: 36415; 36569; 36600; 71045; 72148; 74018; 74176; 76700; 76937; 78278; 80048; 80061; 80076; 82270; 82375; 82550; 82553; 82805; 83605; 83615; 83735; 84439; 84443; 84481; 84484; 85014; 85018; 85027; 86850; 86900; 86920; 87070; 87075; 87102; 87116; 88108; 88305; 88312; 93005; 93306; 93970; 94640; 96365; 96375; 97163; 97530; 97535; 97760; 99291; A6261; A9560; C1725; C9113; J0171; J0282; J0610; J0885; J1170; J1200; J1644; J2270; J2370; J2405; J3010; J3490; J7030; J7040; J7050; J7060; J7620; P9016; P9041